=== PATIENT | female | born 2000 | race Asian ===

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

== ENCOUNTER 2022-03-21 16:41 | Emergency (ER) | payer OTHER ==
[~2022-03-21] VITALS: Ht 167.6 cm; Wt 90.7 kg
[~2022-03-21 16:41] MED LIST: INSU300I SC; INSUINJ20 SC
[2022-03-21 16:48] VITALS: BP 115/84; TEMP 96.5
[2022-03-21 17:10] LABS: PLATELET COUNT 305 K/uL (152-353)
[2022-03-21 17:15] LABS: POTASSIUM 3.5 mmol/L (3.6-5.2)
== END 2022-03-21 18:14 | disposition home or self-care (01) ==
LOC: ED 16:41
PROVIDERS: Family Medicine
DX: O20.0 Threatened abortion (principal); Z3A.08 8 weeks gestation of pregnancy
CPT/HCPCS: 80053; 80307; 81002; 85027; 99283